=== PATIENT | female | born 1960 | race Two or more races ===

== ENCOUNTER 2018-03-10 13:51 | Emergency (ER) | payer BC ==
[2018-03-10 14:57] VITALS: BP 161/91; PULSE 65; TEMP 98.6; BMI 32.4
[2018-03-10] MEDS ORDERED: ACETAMINOPHEN 1000 MG/100 ML VIAL (NON FORMULARY) IVPB ONE (15:43)
[2018-03-10 15:47] LABS: BASO % 1.1 % (0-2.0); EOS % 3.7 % (0-4.5); LYMPH % 50.6 % (8-40); MCHC 32.3 g/dl (32.0-36.0); MEAN CELL VOLUME 86.7 fl (80-96); MONO % 6.2 % (3.8-10.2); NEUT % 38.4 % (42.8-82.8); PLATELET COUNT 236 K/MM3 (134-434); RBC 4.27 M/mm3 (3.60-5.2); RDW 13.4 % (11.6-15.6); WHITE BLOOD COUNT 6.2 K/mm3 (4.0-10.0)
--- NOTE | 2018-03-10 15:55 | PDOC ---
History of Present Illness <Ludivina Catalan - Last Filed: 03/10/18 17:20> - General History Source: Patient Exam Limitations: Clinical Condition - History of Present Illness Initial Comments: 03/10/18 15:49 Patient with history of hypertension on lisinopril present with complain of left wrist pain for 6 days which has been worsening in the past 24 hours with radiating pain up left arm to chest area. 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 Patient reported pain started getting worse again when she returned to work yesterday with pain throughout her left upper extremities to chest area. Patient report painful when she presses on sternum. Denies nausea, vomiting, dizziness, numbness or tingling sensation. Patient denies headache or sweats. 03/10/18 15:52 Timing/Duration: getting worse, other (6) <Quentin Del Valle - Last Filed: 03/11/18 11:58> - General Chief Complaint: Chest Pain Stated Complaint: WRIST PAIN/chest pain Time Seen by Provider: 03/10/18 14:49 Past History <Ludivina Catalan - Last Filed: 03/10/18 17:20> - Past Medical History COPD: No HTN: Yes - Suicide/Smoking/Psychosocial Hx Smoking History: Never smoked Hx Alcohol Use: No Drug/Substance Use Hx: No <Quentin Del Valle - Last Filed: 03/11/18 11:58> - Past Medical History Allergies/Adverse Reactions: Allergies Allergy/AdvReac Type Severity Reaction Status Date / Time No Known Allergies Allergy Verified 03/10/18 15:51 Home Medications: Ambulatory Orders Methocarbamol [Robaxin -] 500 mg PO TID PRN #21 tablet 03/10/18 Naproxen 500 mg PO BID PRN #20 tablet 03/10/18 Review of Systems - Review of Systems Able to Perform ROS?: Yes Is the patient limited [place] proficient: No Constitutional: No: Weakness HEENTM: No: Blurred Vision, Double Vision Respiratory: No: Cough, Orthopnea, Shortness of Breath, SOB with Exertion, SOB at Rest, Stridor, Wheezing, Productive cough, Hemoptysis, Other Cardiac (ROS): Yes: See HPI, Chest Pain (mid-sternum). No: Edema, Irregular Heart Rate, Lightheadedness, Palpitations, Syncope, Chest Tightness ABD/GI: No: Nausea, Vomiting Musculoskeletal: No: Back Pain All Other Systems: Reviewed and Negative <Quentin Del Valle - Last Filed: 03/11/18 11:58> *Physical Exam - Vital Signs Last Vital Signs Temp Pulse Resp BP Pulse Ox 98.6 F 65 16 161/91 100 03/10/18 14:42 03/10/18 14:42 03/10/18 14:42 03/10/18 14:42 03/10/18 14:42 <Ludivina Catalan - Last Filed: 03/10/18 17:20> - Vital Signs Last Vital Signs Temp Pulse Resp BP Pulse Ox 98.6 F 65 16 161/91 100 03/10/18 14:42 03/10/18 14:42 03/10/18 14:42 03/10/18 14:42 03/10/18 14:42 - Physical Exam Comments: 03/10/18 15:53 GENERAL: Well developed, well nourished. Awake and alert. No acute distress. HEENT: Normocephalic, atraumatic. PERRLA, EOMI. No conjunctival pallor. Sclera are non- icteric. Moist mucous membranes. Oropharynx is clear. NECK: Supple. Full ROM. No JVD. Carotid pulses 2+ and symmetric, without bruits. No thyromegaly. No lymphadenopathy. CARDIOVASCULAR: mild tenderness to mid-sternum Regular rate and rhythm. No murmurs, rubs, or gallops. Distal pulses are 2+ and symmetric. PULMONARY: No evidence of respiratory distress. Lungs clear to auscultation bilaterally. No wheezing, rales or rhonchi. ABDOMINAL: Soft. Non-tender. Non-distended. No rebound or guarding. No organomegaly. Normoactive bowel sounds. MUSCULOSKELETAL : moderate tenderness to whole LUE down to fingers. no swelling to UE. Normal range of motion at all joints. No bony deformities EXTREMITIES: No cyanosis. No clubbing. No edema. No calf tenderness. SKIN: Warm and dry. Normal capillary refill. No rashes. No jaundice. NEUROLOGICAL: Alert, awake, appropriate. PSYCHIATRIC: Cooperative. Good eye contact. Appropriate mood and affect. General Appearance: Yes: Nourished, Appropriately Dressed. No: Apparent Distress <Quentin Del Valle - Last Filed: 03/11/18 11:58> ED Treatment Course - LABORATORY CBC & Chemistry Diagram: 03/10/18 15:35 03/10/18 15:35 - ADDITIONAL ORDERS Additional order review: Laboratory Results 03/10/18 03/10/18 16:35 15:35 Sodium 142 Potassium 4.4 Chloride 107 Carbon Dioxide 26 Anion Gap 9 BUN 20 H Creatinine 0.5 L Creat Clearance w eGFR > 60 Random Glucose 75 Calcium 9.2 Total Bilirubin < 0.1 L AST 27 ALT 31 Alkaline Phosphatase 90 Creatine Kinase 580 H Troponin I < 0.02 Total Protein 7.5 Albumin 3.6 Urine Color Ltyellow Urine Appearance Clear Urine pH 5.0 Ur Specific [place] 1.024 Urine Protein Negative Urine Glucose (UA) Negative Urine Ketones Negative Urine Blood Negative Urine Nitrite Negative Urine Bilirubin Negative Urine Urobilinogen Negative Ur Leukocyte Esterase Negative 03/10/18 15:35 RBC 4.27 MCV 86.7 MCHC 32.3 RDW 13.4 MPV 10.0 Neutrophils % 38.4 L Lymphocytes % 50.6 H Monocytes % 6.2 Eosinophils % 3.7 Basophils % 1.1 - Medications Given in the ED: ED Medications Discontinued Medications Generic Name Dose Route Start Last Admin Trade Name Freq PRN Reason Stop Dose Admin Acetaminophen 1,000 mg 03/10/18 15:43 03/10/18 15:59 Ofirmev Injection - IVPB 03/10/18 15:44 1,000 mg ONCE ONE Administration <Ludivina Catalan - Last Filed: 03/10/18 17:20> - LABORATORY CBC & Chemistry Diagram: 03/10/18 15:35 03/10/18 15:35 - RADIOLOGY Radiology Studies Ordered: Category Date Time Status CHEST PA & LAT [RAD] Stat Radiology 03/10/18 15:24 Ordered FOREARM- LEFT [RAD] Stat Radiology 03/10/18 15:24 Ordered WRIST W/HAND-LEFT* [RAD] Stat Radiology 03/10/18 15:24 Ordered <EligioQuentin Prudencio - Last Filed: 03/11/18 11:58> Medical Decision Making - Medical Decision Making 03/10/18 15:55 Patient with history of hypertension on meds present with complain of midsternal and 1wk h/o left upper extremity which has been worsening the past 24 hours. Exam significant for mild midsternal tenderness with moderate tenderness to hold left upper extremity without swelling or visible deformity. EKG shows normal sinus rhythm. CBC, CMP, cardiac profile ordered. Chest x-ray ordered to rule out acute pathology. X-ray of left upper extremity ordered. Treat based on imaging and lab results. Tylenol 1 g IV given for pain 03/10/18 18:06 CBC and chemistry shows no acute pathology. CXR was normal. Cardiac profile was neg. troponins to be repeat 3hrs from previous labs. pt report feeling improved pain with Tylenol. patient will be discharged home on NSAIDS with orthopedics follow-up if neg rpt labs 03/10/18 20:18 rpt troponins negative. patient stable for discharge <Quentin Del Valle - Last Filed: 03/11/18 11:58> *DC/Admit/Observation/Transfer <Ludivina Catalan - Last Filed: 03/10/18 17:20> - Discharge Dispostion Decision to Admit order: No <Quentin Del Valle - Last Filed: 03/11/18 11:58> Diagnosis at time of Disposition: Costochondral chest pain, Left arm pain - Discharge Dispostion Disposition: HOME Condition at time of disposition: Stable - Prescriptions Prescriptions: Methocarbamol [Robaxin -] 500 mg PO TID PRN #21 tablet PRN Reason: for pain Naproxen 500 mg PO BID PRN #20 tablet PRN Reason: pain - Referrals Referrals: Roby Davis [Primary Care Provider] - - Patient Instructions Printed Discharge Instructions: DI for Chest Pain Additional Instructions: The labs was normal. A chest x-ray was normal. Symptoms is likely was crossed skeletal. Take prescribed medication as needed for pain. Follow up with preferred orthopedics if symptoms persist. Come back to emergency room if worsening pain, worsening nausea, vomiting, dizziness or worsening chest pain. - Post Discharge Activity Forms/Work/School Notes: Back to Work
[2018-03-10] MEDS ORDERED: ACETAMINOPHEN INJECTION 100 ML IVPB ONE (15:56)
--- NOTE | 2018-03-10 16:50 | PDOC ---
*Physical Exam - Vital Signs Last Vital Signs Temp Pulse Resp BP Pulse Ox 98.6 F 65 16 161/91 100 03/10/18 14:42 03/10/18 14:42 03/10/18 14:42 03/10/18 14:42 03/10/18 14:42 Heart Score/ECG Review - History History: Slightly suspicious - Electrocardiogram EKG: Non specific repolarization disturbance - Age Age: 45-65 - Risk Factors Risk Factors Heart Score: Yes Hx Hypertension Based on the list above the patient has:: 1-2 risk factors - Troponin Troponin: </= normal limit - Score Heart Score - Total: 3 ED Treatment Course - LABORATORY CBC & Chemistry Diagram: 03/10/18 15:35 03/10/18 15:35 - ADDITIONAL ORDERS Additional order review: 03/10/18 15:35 RBC 4.27 MCV 86.7 MCHC 32.3 RDW 13.4 MPV 10.0 Neutrophils % 38.4 L Lymphocytes % 50.6 H Monocytes % 6.2 Eosinophils % 3.7 Basophils % 1.1 - Medications Given in the ED: ED Medications Discontinued Medications Generic Name Dose Route Start Last Admin Trade Name Freq PRN Reason Stop Dose Admin Acetaminophen 1,000 mg 03/10/18 15:43 03/10/18 15:59 Ofirmev Injection - IVPB 03/10/18 15:44 1,000 mg ONCE ONE Administration Medical Decision Making - Medical Decision Making 03/10/18 16:18 Ms Panchito Sanders is a 58 yo f who presents to the ER with a complaint of left wrist pain Pt works in [place] in the [employer] service She may have overexerted herself Pt has chest pain which radiates FROM the left arm This worsens with movement of the wrist Labs EKG: SR rate of 55 bpm, axis nml, intervals nnml, no st elevation or depression , prominent anterior t waves Heart score 3 Awaiting labs Laboratory Tests 03/10/18 15:35 Creatine Kinase 580 H Troponin I < 0.02 03/10/18 17:20 Will repeat trop CXR pending Pt signed out to Dr Rodriguez [facility] Pt likely has atypical chest pain, costochondritis? *DC/Admit/Observation/Transfer Diagnosis at time of Disposition: Costochondral chest pain, Left arm pain - Discharge Dispostion Disposition: HOME Condition at time of disposition: Stable - Prescriptions Prescriptions: Methocarbamol [Robaxin -] 500 mg PO TID PRN #21 tablet PRN Reason: for pain Naproxen 500 mg PO BID PRN #20 tablet PRN Reason: pain - Referrals Referrals: Roby Davis [Primary Care Provider] - - Patient Instructions Printed Discharge Instructions: DI for Chest Pain Additional Instructions: The labs was normal. A chest x-ray was normal. Symptoms is likely was crossed skeletal. Take prescribed medication as needed for pain. Follow up with preferred orthopedics if symptoms persist. Come back to emergency room if worsening pain, worsening nausea, vomiting, dizziness or worsening chest pain. - Post Discharge Activity Forms/Work/School Notes: Back to Work
[2018-03-10 16:55] LABS: CREATININE 0.5 mg/dL (0.55-1.3)
[2018-03-10 16:56] LABS: ALBUMIN 3.6 g/dl (3.4-5.0)
[2018-03-10 17:10] LABS: URINE APPEARANCE CLEAR; URINE BILIRUBIN NEGATIVE (<2.0 mg/dL); URINE COLOR LTYELLOW; URINE GLUCOSE (UA) NEGATIVE (NEGATIVE); URINE KETONE NEGATIVE (NEGATIVE); URINE LEUK ESTERASE NEGATIVE (NEGATIVE); URINE NITRITE NEGATIVE (NEGATIVE); URINE PROTEIN NEGATIVE (NEGATIVE); URINE UROBILINOGEN NEGATIVE mg/dL (0.2-1.0)
[2018-03-10 18:39] LABS: ALK PHOS 90 U/L (45-117); ANION GAP 9 MMOL/L (8-16); BILIRUBIN,TOTAL < 0.1 mg/dL (0.2-1); BLOOD UREA NITROGEN 20 mg/dL (7-18); CALCIUM 9.2 mg/dL (8.5-10.1); CHLORIDE 107 mmol/L (98-107); CO2 26 mmol/L (21-32); GLUCOSE,RANDOM 75 mg/dL (74-106); POTASSIUM 4.4 mmol/L (3.5-5.1); SGOT/AST 27 U/L (15-37); SGPT/ALT 31 U/L (13-61); SODIUM 142 mmol/L (136-145); TOT PROT 7.4 g/dl (6.4-8.2)
--- NOTE | 2018-03-11 11:10 | EKG ---
Test Reason : Blood Pressure : / mmHG Vent. Rate : 055 BPM Atrial Rate : 055 BPM P-R Int : 190 ms QRS Dur : 098 ms QT Int : 432 ms P-R-T Axes : 018 025 043 degrees QTc Int : 413 ms SINUS BRADYCARDIA NONSPECIFIC T WAVE ABNORMALITY ABNORMAL ECG NO PREVIOUS ECGS AVAILABLE Confirmed by DEBBIE ELLER MD ([id number]) on 03/11/2018 11:09:50 AM Referred By: Confirmed By:DEBBIE ELLER MD
== END 2018-03-10 21:14 | disposition home or self-care (01) ==
LOC: EDBD 13:51 → JER 13:51
PROC: 3E033NZ Introduction of Analgesics, Hypnotics, Sedatives into Peripheral Vein, Percutaneous Approach (ICD-10-PCS; principal; 2018-03-10)
DX: M94.0 Chondrocostal junction syndrome [Tietze] (principal); M79.602 Pain in left arm; I10 Essential (primary) hypertension
CPT/HCPCS: 36415; 71046-TC-FY; 73090-TC-LT-FY; 73110-TC-LR-FY; 73130-TC-LR-FY; 80053; 81003; 82550; 82553; 84484; 85025; 87086; 93005; 93010; 99283-25; J0131